=== PATIENT | female | born 1950 | race Caucasian/White ===

== ENCOUNTER → 2023-09-25 13:50 | Outpatient (REF) | payer MEDICARE, BC, SELFPAY | LOC: HWWDC 13:50 | PROVIDERS: ATTENDING PHYSICIAN Obstetrics & Gynecology Gynecology; FAMILY PHYSICIAN Internal Medicine | DX: Z12.31 Encounter for screening mammogram for malignant neoplasm of breast (principal) | CPT/HCPCS: 77063; 77067 ==

== ENCOUNTER → 2023-11-07 06:38 | Outpatient (REF) | payer MEDICARE, BC, SELFPAY ==
[2023-11-07 10:07] LABS: Urine Albumin Negative (Neg - Trace); Urine Bilirubin Negative (Negative); Urine Character Clear (Clear); Urine Color Yellow; Urine Glucose Negative (Negative); Urine Ketone Negative (Negative); Urine Leukocyte Trace (Negative); Urine Nitrite Negative (Negative); Urine Occult Blood Negative (Negative); Urine Urobilinogen Negative (Neg - 1+)
[2023-11-07 10:11] LABS: ALT (SGPT) 34 U/L (0-35); AST (SGOT) 43 U/L (14-36); Albumin 4.2 g/dl (3.5-5.0); Alkaline Phosphatase 83 U/L (38-126); Blood Urea Nitrogen 19 mg/dl (7-17); Calcium 9.9 mg/dl (8.4-10.2); Carbon Dioxide 28 mmol/L (22-30); Chloride 105 mmol/L (98-107); Glucose 90 mg/dl (70-99); HDL Cholesterol 108 mg/dl; LDL Cholesterol, Calculated 57 mg/dl; Potassium 4.4 mmol/L (3.5-5.1); Sodium 139 mmol/L (135-145); Total Bilirubin 0.6 mg/dl (0.2-1.3); Total Cholesterol 173 mg/dl (50-199); Total Protein 6.6 g/dl (6.3-8.2); Triglyceride 40 mg/dl (10-149); Very Low Density Lipoprotein 8 mg/dl (0-30); eGFR 58.75
[2023-11-07 10:15] LABS: % Basophils 1.1 % (0-2); % Eosinophils 2.6 % (0-6); % Immature Granulocytes 0.2 % (0-0.5); % Lymphocytes 26.4 % (20.5-51.1); % Monocytes 10.6 % (1.7-9.3); % Neutrophils 59.1 % (42.2-75.2); Absolute Basophils 0.1 10^3/uL (0-0.2); Absolute Eosinophils 0.1 10^3/uL (0-0.7); Absolute Lymphocytes 1.2 10^3/uL (1.2-3.4); Absolute Monocytes 0.5 10^3/uL (0.1-0.6); Absolute Neutrophils 2.7 10^3/uL (1.4-6.5); Hematocrit 41.3 % (37.0-47.0); Hemoglobin 13.7 g/dL (12.0-16.0); Mean Corp Hgb Conc. 33.2 g/dL (33.0-37.0); Mean Corpuscular Hgb 32.1 pg (27.0-31.0); Mean Corpuscular Volume 96.7 fL (81.0-99.0); Mean Platelet Volume 10.3 fL (7.4-10.4); Nucleated Red Blood Cells % 0 %; Platelet Count 197 10^3/uL (130-400); Red Blood Cell Count 4.27 10^6/uL (4.20-5.40); Red Cell Dist. Width 13.2 % (11.5-14.5); White Blood Cell Count 4.6 10^3/uL (4.8-10.8)
[2023-11-07 10:24] LABS: Vitamin D, 25-OH*** 44.8 ng/mL (30-80)
[2023-11-07 10:38] LABS: TSH 3.73 uIU/ml (0.47-4.68)
[2023-11-07 10:49] LABS: Urine Amorphous Seen
[2023-11-07 10:50] LABS: Urine Red Blood Cell 0-2 /HPF (0-2)
== END ==
LOC: HWLAB 06:38
PROVIDERS: ATTENDING PHYSICIAN Internal Medicine
DX: E78.2 Mixed hyperlipidemia (principal); E03.9 Hypothyroidism, unspecified; Z79.899 Other long term (current) drug therapy
CPT/HCPCS: 36415; 80053; 80061; 81003; 81015; 82306; 84443; 85025

== ENCOUNTER → 2024-09-25 09:19 | Outpatient (REF) | payer MEDICARE, BC, SELFPAY | LOC: HWWDC 09:19 | PROVIDERS: ATTENDING PHYSICIAN Obstetrics & Gynecology Gynecology; FAMILY PHYSICIAN Internal Medicine | DX: Z12.31 Encounter for screening mammogram for malignant neoplasm of breast (principal) | CPT/HCPCS: 77063; 77067 ==

== ENCOUNTER → 2024-11-13 06:27 | Outpatient (REF) | payer MEDICARE, BC, SELFPAY ==
[2024-11-13 08:48] LABS: Hematocrit 43.6 % (37.0-47.0); Hemoglobin 13.8 g/dL (12.0-16.0); Mean Corp Hgb Conc. 31.7 g/dL (33.0-37.0); Mean Corpuscular Volume 98.6 fL (81.0-99.0); Nucleated Red Blood Cells % 0 %; Platelet Count 200 10^3/uL (130-400); Red Cell Dist. Width 13.1 % (11.5-14.5)
[2024-11-13 08:59] LABS: ALT (SGPT) 30 U/L (0-35); AST (SGOT) 36 U/L (14-36); Albumin 4.5 g/dl (3.5-5.0); Alkaline Phosphatase 59 U/L (38-126); Blood Urea Nitrogen 15 mg/dl (7-17); Calcium 9.7 mg/dl (8.4-10.2); Carbon Dioxide 29 mmol/L (22-30); Chloride 105 mmol/L (98-107); Glucose 93 mg/dl (70-99); Potassium 4.0 mmol/L (3.5-5.1); Sodium 141 mmol/L (135-145); Total Protein 6.8 g/dl (6.3-8.2); Very Low Density Lipoprotein 9 mg/dl (0-30); eGFR > 60.00
[2024-11-13 09:13] LABS: HDL Cholesterol 119 mg/dl; LDL Cholesterol, Calculated 74 mg/dl
[2024-11-13 10:02] LABS: Urine Character Clear (Clear)
[2024-11-13 11:45] LABS: Urine Squamous Cell 0-2 /LPF (Few)
[2024-11-13 11:47] LABS: Urine Red Blood Cell 0-2 /HPF (0-2)
[2024-11-13 12:02] LABS: Vitamin D, 25-OH*** 50.5 ng/mL (30-80)
[2024-11-13 12:15] LABS: TSH 4.91 uIU/ml (0.47-4.68)
== END ==
LOC: HWLAB 06:27
PROVIDERS: ATTENDING PHYSICIAN Internal Medicine
DX: Z79.899 Other long term (current) drug therapy (principal); E03.9 Hypothyroidism, unspecified; E78.2 Mixed hyperlipidemia; Z00.00 Encounter for general adult medical examination without abnormal findings
CPT/HCPCS: 36415; 80053; 80061; 81003; 81015; 82306; 84439; 84443; 85025

== ENCOUNTER → 2024-12-14 08:43 | Outpatient (REF) | payer MEDICARE, BC, SELFPAY | LOC: PAVMRI 08:43 | PROVIDERS: ATTENDING PHYSICIAN Internal Medicine | DX: M48.062 Spinal stenosis, lumbar region with neurogenic claudication (principal) | CPT/HCPCS: 72148 ==

== ENCOUNTER 2025-01-22 07:04 | Outpatient (RCR) | payer MEDICARE, BC, SELFPAY | END 2025-01-22 12:19 | disposition home or self-care (01) | LOC: RPT 07:04 | PROVIDERS: ATTENDING PHYSICIAN Internal Medicine | DX: M51.27 Other intervertebral disc displacement, lumbosacral region (principal); M62.81 Muscle weakness (generalized); Z73.6 Limitation of activities due to disability; R26.89 Other abnormalities of gait and mobility | CPT/HCPCS: 97010; 97110; 97112; 97162; 97530; 97535 ==